=== PATIENT | female | born 1985 | race Caucasian/White ===

== ENCOUNTER → 2016-06-28 | Outpatient (CLI) | payer OTHER ==
[2016-06-28 12:09] LABS: HEMATOCRIT 41.6 % (37-47); MEAN CORPUSCULAR HEMOGLOBIN 28.7 pg (25-34); MEAN CORPUSCULAR HGB CONC 34.1 g/dl (32-36); MEAN PLATELET VOLUME 9.3 fL (7.4-10.4); PLATELET COUNT 295 K/uL (130-400); RED BLOOD COUNT 4.95 M/uL (4.2-5.4); WHITE BLOOD COUNT 6.19 K/uL (4.8-10.8)
== END | disposition home or self-care (01) ==
LOC: C.LAB 10:52
PROVIDERS: ATTEND Obstetrics & Gynecology Reproductive Endocrinology
DX: Z31.41 Encounter for fertility testing (principal); Z11.3 Encounter for screening for infections with a predominantly sexual mode of transmission; Z11.4 Encounter for screening for human immunodeficiency virus [HIV]; Z11.59 Encounter for screening for other viral diseases; Z13.0 Encounter for screening for diseases of the blood and blood-forming organs and certain disorders involving the immune mechanism

== ENCOUNTER 2022-06-10 17:19 | Observation (INO) ==
--- NOTE | 2022-06-10 17:32 | ED Triage Note ---
Date of Service June 10, 2022 History of Present Illness This patient was briefly evaluated while in triage. An abbreviated physical exam was performed. This patient is a 36-year-old Female who presents to the ED for evaluation of epigastric abdominal pain. Started around 0800 this morning. Got worse after lunch. Radiates through the back. Nausea without vomiting. History of esophagitis and esophageal stricture but this feels different. 08/20 Physical Exam GENERAL: NAD CARDIOVASCULAR: RRR RESPIRATORY: CTA ABDOMEN: BS x 4. Mild epigastric tenderness to palpation. Initial orders for labs and / or imaging were placed and patient was placed in the waiting area until a bed is available. Please see further documentation for the full ED course.
--- NOTE | 2022-06-10 19:01 | Ultrasound Report ---
US gallbladder CLINICAL HISTORY: Upper abdominal pain. COMPARISON STUDY: No previous studies for comparison. FINDINGS: The liver is sonographically normal. There is no biliary ductal dilatation. The common bile duct measures 5 mm in caliber. The gallbladder is distended. Numerous gallstones within the gallblad james noted. There is no gallbladder wall thickening. Is no pericholecystic fluid. No sonographic Tree [place] sign was elicited. Pancreatic body is normal. Head and tail are partially obscured. There is no rig ht hydronephrosis. IMPRESSION: 1. Cholelithiasis with mild gallbladder distention. No gallbladder wall thickening. No sonographic Mu rphy sign. No convincing evidence for acute cholecystitis although a hepatobiliary scan could be obta ined. 2. No biliary ductal dilatation. ACT 112: Negative or not required by law. Electronically signed by: Hadley Nick M.D. 06/10/2022 7:00 PM
[2022-06-10 19:21] LABS: Basophils # (auto) 0.09 K/uL (0-0.2); Basophils % (auto) 0.9 %; Eosinophils # (auto) 0.44 K/uL (0-0.50); Eosinophils % (auto) 4.6 %; Hematocrit (blood only) 40.1 % (37.0-47.0); Hemoglobin 13.7 g/dl (12.0-16.0); Immature Granulocytes # (auto) 0.03 K/uL (0.01-0.20); Immature Granulocytes % (auto) 0.3 %; Lymphocytes # (auto) 1.87 K/uL (1.2-3.4); Lymphocytes % (auto) 19.6 %; Mean Corpuscular Hgb Conc 34.2 g/dL (32.0-36.0); Mean Corpuscular Volume 84.8 fL (80.0-100.0); Mean Platelet Volume 9.5 fL (9.4-12.4); Monocytes # (auto) 0.55 K/uL (0.11-0.59); Monocytes % (auto) 5.8 %; Neutrophils # (auto) 6.57 K/uL (1.40-6.50); Neutrophils % (auto) 68.8 %; Platelet Count 304 K/uL (130-400); RDW Coefficient of Variation 12.2 % (11.5-14.5); RDW Standard Deviation 37.5 fL (36.4-46.3); Red Blood Count 4.73 M/uL (4.20-5.40); White Blood Count 9.55 K/ul (4.8-10.8)
[2022-06-10 19:35] LABS: Appearance Urine Turbid (Clear); Bacteria Urine Automated 1+ (Negative); Bilirubin Urine Negative (Negative); Blood Urine Negative (Negative); Cast Urine Automated 0 /lpf (0-5); Color Urine Yellow; Epithelial Cell Urine Auto >30 /lpf (0-5); Glucose Urine UA Negative (Negative); Ketones Urine 3+ (Negative); Leukocyte Esterase Urine 1+ (Negative); Nitrite Urine Negative (Negative); Protein Urine Negative (Negative); RBC Urine Automated 0-4 /hpf (0-4); Specific Gravity Urine 1.021 (1.000-1.030); Urobilinogen Urine Negative (Negative); pH Urine 8.5 (4.5-7.5)
[2022-06-10 19:39] LABS: Albumin Globulin Ratio 1.7 (0.9-2); Albumin Level 4.6 gm/dl (3.4-5.0); BUN Creatinine Ratio 17.6 (10-20); Bilirubin,Total 0.4 mg/dl (0.2-1.0); Calcium 9.7 mg/dl (8.5-10.1); Creatinine Clr Calc Pharmacy 87.8 ml/min; Est GFR (African American) 100.7 ml/min; Est GFR (Non-African American) 86.9 ml/min; Globulin 2.7 gm/dl (2.5-4.0); Potassium 3.9 mmol/L (3.5-5.1); Total Protein 7.3 gm/dl (6.0-8.3)
[2022-06-10 19:50] LABS: Pregnancy Test, Serum Negative (Negative)
[2022-06-10] MEDS ORDERED: ONDANSETRON INJ 2 MG/ML 2 ML VIAL IV STA (20:02)
[2022-06-10] MEDS ORDERED: MoRPHine SULFATE 4 MG/ML 1 ML CARP\\VIAL IV STA (20:02)
[2022-06-10] MEDS ORDERED: SODIUM CHLORIDE 0.9% 1000ML 1,000 ML IV SCH (20:02)
--- NOTE | 2022-06-10 20:11 | Emergency Department Note ---
History of Present Illness General Chief complaint: Abdominal Pain Stated complaint: UPPER ABDOMINAL PAIN Time Seen by Provider: 06/10/22 19:08 History of Present Illness Maximum Pain Intensity: 5 Patient is a 36-year-old female with past medical history significant for dysphagia, eosinophilic esophagitis and history of esophageal stricture who presents emergency department for evaluation of epigastric abdominal pain. Discomfort started around 0800 this morning. It is a constant, aching pain that radiates through to the back. She states her symptoms got worse after she ate lunch today, she had tuna, yogurt, popcorn, carrots and cucumbers around 1300. She went to an urgent care center but was told that they could not do any imaging and thus she presented here. At its worst she would have rated her pain a 7/10, she currently rates it a 6/10. She is nauseous but did not vomit. She denies any diarrhea. No urinary symptoms. She is status post appendectomy. Home Medications Medication Instructions Recorded Confirmed Type pantoprazole 40 mg tablet,delayed 40 mg PO DAILY EOE 1 month #30 tabs 11/20/21 06/10/22 Rx release (Protonix) conj estrogen-medroxyprogesterone See Rx Instructions .Route 06/09/22 06/10/22 Rx 0.625 mg-2.5 mg tablet (Prempro) .COMPLEX #84 tabs budesonide 1 mg/2 mL suspension 1 mg inhalation BID 06/10/22 06/10/22 History for nebulization multivitamin 1 tab PO DAILY 06/10/22 06/10/22 History Allergies Allergy/AdvReac Type Severity Reaction Status Date / Time No Known Drug Allergies Allergy Unknown Verified 06/10/22 20:11 Past Med/Surg History Medical History Acid reflux Dysphagia RESOLVED/NO CURRENT PROBLEMS Early menopause History of COVID-19 02/2021; fatigue, headache, fever; resolved. History of esophageal dilatation History of esophageal stricture Ovarian failure Surgical History H/O eye surgery retinal surgery History of colonoscopy History of esophagogastroduodenoscopy (EGD) History of tooth extraction S/P appendectomy Family History Grandmother (Paternal) Arthritis Heart disease Breast cancer Mother COPD (chronic obstructive pulmonary disease) Family/Other Pancreatic cancer Maternal Great Grandmother Other Diabetes Hypertension No family history of adverse response to anesthesia Denies family history of Ovarian cancer Prostate cancer Myocardial infarction Colorectal cancer Uterine cancer Social History Smoking Status: Never smoker Second Hand Exposure: Yes (in the past); Hx Alcohol Use: Yes Hx Substance Use: No Preferred Language: Bulgarian Communication Ability: Effective Transit Mechanic Required: No Beliefs That Will Affect Care: None marital status: Current Living Situation: Significant Other current occupational status: employed current occupation: social media campaign manager Feels Safe at Home: Yes caffeine: Yes Dental Care, Regularly: Yes Physical Activity Frequency: 3-4 Times per Week Seatbelt Use: always Assistive Devices: Contacts and Glasses Review of Systems A total of 10 systems reviewed and were otherwise negative Physical Exam Vital Signs Vital Signs - 24 hr 06/10/22 17:29 06/10/22 19:11 06/10/22 20:23 Temperature 36.8 C 36.4 C L Temperature Source Temporal Artery Scan Oral Pulse Rate 64 Pulse Rate [Right Finger] 68 Pulse Rhythm [Right Finger] Regular Pulse Strength [Right Finger] Normal Respiratory Rate 20 16 Respiratory Effort / Characteristics Non-Labored Non-Labored Respiratory Depth Normal Respiratory Pattern Regular Blood Pressure 143/90 H Blood Pressure [Left Arm] 116/72 Blood Pressure Mean 107 Blood Pressure Mean [Left Arm] 86 Blood Pressure Position [Left Arm] Lying Pulse Oximetry 100 100 88 L Oxygen Delivery Method Room Air Room Air Nasal Cannula Oxygen Flow Rate 0 Sepsis Recent Fever Within 48 Hours No Sepsis New/Unexplained Change in Mental Status N/A Sepsis Action Taken by Nursing No Action Required Oxygen Flow Rate - Titration 2 Pulse Oximetry Post Tiitration 98 06/10/22 19:30 06/10/22 20:00 06/10/22 21:00 Temperature Temperature Source Pulse Rate 69 70 66 Pulse Rate [Right Finger] Pulse Rhythm [Right Finger] Pulse Strength [Right Finger] Respiratory Rate 14 15 16 Respiratory Effort / Characteristics Respiratory Depth Respiratory Pattern Blood Pressure 131/86 119/80 123/75 Blood Pressure [Left Arm] Blood Pressure Mean 101 93 91 Blood Pressure Mean [Left Arm] Blood Pressure Position [Left Arm] Pulse Oximetry 100 Oxygen Delivery Method Oxygen Flow Rate Sepsis Recent Fever Within 48 Hours Sepsis New/Unexplained Change in Mental Status Sepsis Action Taken by Nursing Oxygen Flow Rate - Titration Pulse Oximetry Post Tiitration 06/10/22 19:36 06/10/22 23:00 06/10/22 23:15 Temperature Temperature Source Pulse Rate 67 77 89 Pulse Rate [Right Finger] Pulse Rhythm [Right Finger] Pulse Strength [Right Finger] Respiratory Rate 16 Respiratory Effort / Characteristics Respiratory Depth Respiratory Pattern Blood Pressure 121/71 Blood Pressure [Left Arm] Blood Pressure Mean 87 Blood Pressure Mean [Left Arm] Blood Pressure Position [Left Arm] Pulse Oximetry 96 Oxygen Delivery Method Oxygen Flow Rate Sepsis Recent Fever Within 48 Hours Sepsis New/Unexplained Change in Mental Status Sepsis Action Taken by Nursing Oxygen Flow Rate - Titration Pulse Oximetry Post Tiitration 06/10/22 23:30 Temperature Temperature Source Pulse Rate 77 Pulse Rate [Right Finger] Pulse Rhythm [Right Finger] Pulse Strength [Right Finger] Respiratory Rate 18 Respiratory Effort / Characteristics Respiratory Depth Respiratory Pattern Blood Pressure 124/77 Blood Pressure [Left Arm] Blood Pressure Mean 92 Blood Pressure Mean [Left Arm] Blood Pressure Position [Left Arm] Pulse Oximetry 97 Oxygen Delivery Method Oxygen Flow Rate Sepsis Recent Fever Within 48 Hours Sepsis New/Unexplained Change in Mental Status Sepsis Action Taken by Nursing Oxygen Flow Rate - Titration Pulse Oximetry Post Tiitration CONSTITUTIONAL: Patient is a mildly uncomfortable 36-year-old female who is awake and alert and laying on the gurney. EYES: Pupils equal, round, reactive to light and accommodation. EOMs intact wi thout nystagmus. Sclera are anicteric. ENT: Tympanic membranes intact, with normal landmarks. External canals are clear. Oral and nasopharynx are clear. Mucous membranes are moist, no lesions, tongue and gums appear normal. CARDIOVASCULAR: Regular rate and rhythm. Peripheral pulses easily palpable. RESPIRATORY: Breath sounds equal and clear to auscultation without wheezes, rales, or rhonchi heard. ABDOMEN: Bowel sounds are present. Well-healed surgical scars are noted. The abdomen is soft, nondistended, mildly tender to percussion and palpation in the epigastric and the right upper quadrant. Negative Walker sign. No guarding. No rebound. INTEGUMENTARY: No lesions or rash, normal skin turgor. LYMPH: No lymphadenopathy. Course Course The patient was seen and assessed as above. External medical records are reviewed. She was briefly seen by myself in triage and orders were initiated. She was fully examined by myself and she was placed in room B3. IV lock was initiated and laboratory studies were collected. CBC with differential, CMP, lipase, urinalysis and serum hCG were collected. Ultrasound of the gallbladder was ordered. After my assessment of the patient in the room, she was ordered a liter bolus of normal saline solution, Zofran 4 mg and morphine 4 mg IV. Laboratory studies per my interpretation note no leukocytosis. No left shift. No anemia. No electrolyte, renal function or liver function abnormalities. Lipase is not elevated. test is negative. Urine microscopy is indicative of contamination with greater than 30 epithelial cells. She does have 1+ leukocyte esterase and 10-30 WBCs with 1+ bacteria. A urine culture is pending. Ultrasound per my interpretation notes mildly distended gallbladder with numerous gallstones. There is no gallbladder wall thickening, pericholecystic fluid or ductal dilatation however. Findings are consistent with cho lelithiasis, but no evidence for acute cholecystitis. Laboratory studies and ultrasound findings were reviewed with the patient. She is moderately uncomfortable on exam, and has yet to be medicated. She was reassessed after receiving the IV morphine and Zofran, and reported only minimal improvement, she rated her discomfort a 4/10. Treatment options were discussed with the patient. After review of the information above and other included data, I feel the patient would benefit from admission for surgical evaluation and likely surgical intervention. I did discuss the patient with the ED nurse case management, and review the patient with general surgery, Sanchez Ronquillo PA-C. He will admit the patient to the surgical service, with plan for surgical intervention tomorrow. This was reviewed with the patient and she was agreeable. He rested comfortably in the emergency department and remained sta ble until she was admitted to the inpatient unit. Administered Medications Sodium Chloride (Nss 1000ml) 1,000 mls @ 125 mls/hr IV .Q8H CORINNA Stop: 07/10/22 21:44 Last Admin: 06/10/22 22:03 Dose: 125 mls/hr Documented By: HERRERA Discontinued Medications Sodium Chloride (Nss 1000ml) 1,000 mls @ 999 mls/hr IV .Q1H1M CORINNA Stop: 06/10/22 21:02 Last Infusion: 06/10/22 21:13 Dose: 0 mls/hr Documented By: Admin: 06/10/22 20:08 Dose: 999 mls/hr Documented By: HERRERA Morphine Sulfate (Morphine Sulfate 4 Mg/Ml 1 Ml Carp\Vial) 4 mg IV NOW STA Stop: 06/10/22 20:03 Last Admin: 06/10/22 20:08 Dose: 4 mg Documented By: HERRERA Ondansetron HCl (Ondansetron Inj 2 Mg/Ml 2 Ml Vial) 4 mg IV NOW STA Stop: 06/10/22 20:03 Last Admin: 06/10/22 20:08 Dose: 4 mg Documented By: HERRERA Medical Decision Making Differential Diagnosis Differential diagnoses considered included GERD, gastritis, esophagitis, peptic ulcer disease, acute pancreatitis, acute cholecystitis, biliary colic, ascending cholangitis, bowel obstruction, perforation, among others. Medical Records Attestation: I reviewed the patient's medical records. Home Medications Current Medication List: was personally reviewed by me Laboratory Data Attestation: I reviewed the patient's lab results. 06/10/22 18:40 06/10/22 18:40 Lab Results 06/10/22 06/10/22 06/10/22 Range/Units 18:40 18:40 18:40 WBC 9.55 (4.8-10.8) K/ul RBC 4.73 (4.20-5.40) M/uL Hgb 13.7 (12.0-16.0) g/dl Hct 40.1 (37.0-47.0) % MCV 84.8 (80.0-100.0) fL MCH 29.0 (25.0-34.0) pg MCHC 34.2 (32.0-36.0) g/dL RDW Std Deviation 37.5 (36.4-46.3) fL RDW Coeff of Onesimo 12.2 (11.5-14.5) % Plt Count 304 (130-400) K/uL MPV 9.5 (9.4-12.4) fL Immature Gran % (Auto) 0.3 % Neut % (Auto) 68.8 % Lymph % (Auto) 19.6 % [place] % (Auto) 5.8 % Eos % (Auto) 4.6 % Baso % (Auto) 0.9 % Neut # (Auto) 6.57 H (1.40-6.50) K/uL Lymph # (Auto) 1.87 (1.2-3.4) K/uL [place] # (Auto) 0.55 (0.11-0.59) K/uL Eos # (Auto) 0.44 (0-0.50) K/uL Baso # (Auto) 0.09 (0-0.2) K/uL Immature Gran # (Auto) 0.03 (0.01-0.20) K/uL Sodium 137 (136-145) mmol/L Potassium 3.9 (3.5-5.1) mmol/L Chloride 101 (98-107) mmol/L Carbon Dioxide 28 (21-32) mmol/L Anion Gap 8 (3-11) BUN 15 (6-23) mg/dl Creatinine 0.85 (0.6-1.2) mg/dl Est Cr Clr Drug Dosing 87.8 ml/min Est GFR ( Amer) 100.7 ml/min Est GFR (Non-Af Amer) 86.9 ml/min BUN/Creatinine Ratio 17.6 (10-20) Glucose 131 H (70-99(Fasting)) mg/dl Calcium 9.7 (8.5-10.1) mg/dl Total Bilirubin 0.4 (0.2-1.0) mg/dl AST 28 (13-39) U/L ALT 40 (7-52) U/L Alkaline Phosphatase 53 (34-104) U/L Total Protein 7.3 (6.0-8.3) gm/dl Albumin 4.6 (3.4-5.0) gm/dl Globulin 2.7 (2.5-4.0) gm/dl Albumin/Globulin Ratio 1.7 (0.9-2) Lipase 28 (11-82) U/L HCG, Qual Negative (Negative) Urine Color Urine Appearance (Clear) Urine pH (4.5-7.5) Ur Specific [place] (1.000-1.030) Urine Protein (Negative) Urine Glucose (UA) (Negative) Urine Ketones (Negative) Urine Blood (Negative) Urine Nitrite (Negative) Urine Bilirubin (Negative) Urine Urobilinogen (Negative) Ur Leukocyte Esterase (Negative) Urine WBC (Auto) (0-5) /hpf Urine RBC (Auto) (0-4) /hpf U Hyaline Cast (Auto) (0-5) /lpf U Epithel Cells (Auto) (0-5) /lpf Urine Bacteria (Auto) (Negative) SARS-CoV-2, RNA, NAAT (NEGATIVE) 06/10/22 06/10/22 Range/Units 19:16 22:07 WBC (4.8-10.8) K/ul RBC (4.20-5.40) M/uL Hgb (12.0-16.0) g/dl Hct (37.0-47.0) % MCV (80.0-100.0) fL MCH (25.0-34.0) pg MCHC (32.0-36.0) g/dL RDW Std Deviation (36.4-46.3) fL RDW Coeff of Onesimo (11.5-14.5) % Plt Count (130-400) K/uL MPV (9.4-12.4) fL Immature Gran % (Auto) % Neut % (Auto) % Lymph % (Auto) % [place] % (Auto) % Eos % (Auto) % Baso % (Auto) % Neut # (Auto) (1.40-6.50) K/uL Lymph # (Auto) (1.2-3.4) K/uL [place] # (Auto) (0.11-0.59) K/uL Eos # (Auto) (0-0.50) K/uL Baso # (Auto) (0-0.2) K/uL Immature Gran # (Auto) (0.01-0.20) K/uL Sodium (136-145) mmol/L Potassium (3.5-5.1) mmol/L Chloride (98-107) mmol/L Carbon Dioxide (21-32) mmol/L Anion Gap (3-11) BUN (6-23) mg/dl Creatinine (0.6-1.2) mg/dl Est Cr Clr Drug Dosing ml/min Est GFR ( Amer) ml/min Est GFR (Non-Af Amer) ml/min BUN/Creatinine Ratio (10-20) Glucose (70-99(Fasting)) mg/dl Calcium (8.5-10.1) mg/dl Total Bilirubin (0.2-1.0) mg/dl AST (13-39) U/L ALT (7-52) U/L Alkaline Phosphatase (34-104) U/L Total Protein (6.0-8.3) gm/dl Albumin (3.4-5.0) gm/dl Globulin (2.5-4.0) gm/dl Albumin/Globulin Ratio (0.9-2) Lipase (11-82) U/L HCG, Qual (Negative) Urine Color Yellow Urine Appearance Turbid A (Clear) Urine pH 8.5 H (4.5-7.5) Ur Specific [place] 1.021 (1.000-1.030) Urine Protein Negative (Negative) Urine Glucose (UA) Negative (Negative) Urine Ketones 3+ H (Negative) Urine Blood Negative (Negative) Urine Nitrite Negative (Negative) Urine Bilirubin Negative (Negative) Urine Urobilinogen Negative (Negative) Ur Leukocyte Esterase 1+ H (Negative) Urine WBC (Auto) 10-30 H (0-5) /hpf Urine RBC (Auto) 0-4 (0-4) /hpf U Hyaline Cast (Auto) 0 (0-5) /lpf U Epithel Cells (Auto) >30 H (0-5) /lpf Urine Bacteria (Auto) 1+ H (Negative) SARS-CoV-2, RNA, NAAT NEGATIVE (NEGATIVE) Imaging Data Attestation: I personally reviewed and interpreted this imaging study as follows: Radiologist's Impression: Gallbladder Ultrasound 06/10/22 17:33 US gallbladder CLINICAL HISTORY: Upper abdominal pain. COMPARISON STUDY: No previous studies for comparison. FINDINGS: The liver is sonographically normal. There is no biliary ductal dilatation. The common bile duct measures 5 mm in caliber. The gallbladder is distended. Numerous gallstones within the gallbladder noted. There is no gallb ladder wall thickening. Is no pericholecystic fluid. No sonographic Walker sign was elicited. Pancreatic body is normal. Head and tail are partially obscured. There is no right hydronephrosis. IMPRESSION: 1. Cholelithiasis with mild gallbladder distention. No gallbladder wall thickening. No sonographic Walker sign. No convincing evidence for acute cholecystitis although a hepatobiliary scan could be obtained. 2. No biliary ductal dilatation. ACT 112: Negative or not required by law. Electronically signed by: Hadley Nick M.D. 06/10/2022 7:00 PM MDM Narrative See ED course. Impression & Plan Symptomatic cholelithiasis, Biliary colic Discharge Plan Visit Data Chief Complaint: Abdominal Pain Stated Complaint: UPPER ABDOMINAL PAIN ED Provider: Gonzales Saavedra ED Midlevel Provider: Elizabeth Delgado Discharge Problem: Symptomatic cholelithiasis, Biliary colic Patient Disposition: Being Evaluated by Surgeon Discharge Instructions Interventions: ED Discharge Assessment Last Done: 06/11/22 00:30
[2022-06-10] MEDS ORDERED: MoRPHine SULFATE 2 MG/ML CARP IV PRN (21:37)
[2022-06-10] MEDS: SODIUM CHLORIDE 0.9% 1000ML 1,000 ML IV SCH (22:03)
--- NOTE | 2022-06-10 23:28 | History & Physical Report ---
Date of Service June 10, 2022 Assessment & Plan (1) Symptomatic cholelithiasis: Plan: Due to the patient's presenting symptoms as well as findings on imaging we will proceed as follows: Admit the patient to the hospital Implement n.p.o. status at midnight tonight Provide IV fluid for hydration Provide analgesics Provide antiemetics There is concern the patient might have a urinary tract infection so we will initiate antibiotics in form of Rocephin It appears that the patient is suffering from biliary colic and she wishes to proceed with cholecystectomy with Dr. Thomas. We have tentatively planned this procedure for tomorrow. I discussed with the patient the risks, benefits, and alternatives to the surgery and she wishes to proceed. Additional recommendations be forthcoming based on her operative findings and postoperative recovery Will use SCDs for DVT prevention, no chemical means due to planned surgery She will be a level 1 full code History of Present Illness Chief Complaint: Abdominal pain Primary Care Provider: COSMO Moreau This is a 36-year-old female who presented [facility] emergency department secondary to abdominal pain that began approximate 20 minutes after eating this evening. She notes that the pain is located in the epigastric area in the right upper quadrant without radiation. She does not note any modifying factors other than it was relieved with pain medicines administered in the emergency department. She does note that she noticed some minor abdominal pain after eating but never this severe. She has had prior abdominal surgeries that she has had a laparoscopic appendectomy. She notes that she has also had an EGD recently where she was diagnosed with an esophageal stricture as well as eosinophilic esophagitis. Since arrival to the emergency department patient has had labs and imaging which independent reviewed. A gallbladder ultrasound showed the patient had gallstones with mild gallbladder distention. There is no gallbladder wall thickening and no overall convincing evidence for acute cholecystitis. Labs include a CBC were white blood cell count, hemoglobin, hematocrit, and platelet count were all normal. Chemistry profile showed sodium, potassium, BUN, and creatinine were normal. There is no elevation of patient's bilirubin, transaminases or alkaline phosphatase. Her lipase was not elevated. A test was negative. Patient did have a urinalysis that showed 1+ leukocyte Estrace and 10-30 white blood cells per high-power field. There is 1+ bacteria on the study. COVID test was negative. Since arrival to the hospital she has had intravenous fluids initiated. At the time of my interview she was resting comfortably in bed and she was in no distress. Allergies Allergy/AdvReac Type Severity Reaction Status Date / Time No Known Drug Allergies Allergy Unknown Verified 06/10/22 20:11 Home Medications Medication Instructions Recorded Confirmed Type pantoprazole 40 mg tablet,delayed 40 mg PO DAILY EOE 1 month #30 tabs 11/20/21 06/10/22 Rx release (Protonix) conj estrogen-medroxyprogesterone See Rx Instructions .Route 06/09/22 06/10/22 Rx 0.625 mg-2.5 mg tablet (Prempro) .COMPLEX #84 tabs budesonide 1 mg/2 mL suspension 1 mg inhalation BID 06/10/22 06/10/22 History for nebulization multivitamin 1 tab PO DAILY 06/10/22 06/10/22 History Past Med/Surg History Medical History Acid reflux Dysphagia RESOLVED/NO CURRENT PROBLEMS Early menopause History of COVID-19 02/2021; fatigue, headache, fever; resolved. History of esophageal dilatation History of esophageal stricture Ovarian failure Surgical History H/O eye surgery retinal surgery History of colonoscopy History of esophagogastroduodenoscopy (EGD) History of tooth extraction S/P appendectomy Family History Grandmother (Paternal) Arthritis Heart disease Breast cancer Mother COPD (chronic obstructive pulmonary disease) Family/Other Pancreatic cancer Maternal Great Grandmother Other Diabetes Hypertension No family history of adverse response to anesthesia Denies family history of Ovarian cancer Prostate cancer Myocardial infarction Colorectal cancer Uterine cancer Social History Smoking Status: Never smoker Second Hand Exposure: Yes (in the past); Hx Alcohol Use: Yes Hx Substance Use: No Preferred Language: Indonesian Communication Ability: Effective Agriculture Internship Required: No Beliefs That Will Affect Care: None marital status: Current Living Situation: Significant Other current occupational status: employed current occupation: social insurance adviser Feels Safe at Home: Yes caffeine: Yes Dental Care, Regularly: Yes Physical Activity Frequency: 3-4 Times per Week Seatbelt Use: always Assistive Devices: Contacts and Glasses Review of Systems Constitutional: no fever and no chills Eyes: no eye pain Ear, Nose, Mouth, Throat: no ear pain Respiratory: no cough and no dyspnea Cardiovascular: no chest pain Gastrointestinal: as per Subjective / HPI Genitourinary: no dysuria Musculoskeletal: no back pain Integumentary: no rash Neurologic: no localized weakness Physical Exam Constitutional: WD/WN, vitals as above Eyes: + anicteric sclerae; no conjunctival abnormality ENMT: Ears: no hearing impairment and no external ear abnormality Sublingual jaundice is absent Neck: trachea midline Respiratory: normal respiratory effort; no respiratory distress and no labored breathing Cardiovascular: Rate/Rhythm: regular rate and regular rhythm Gastrointestinal (Abdomen): Abdomen is soft, nonrigid, and nondistended. There is no rebound tenderness or guarding. The patient did have pain with deep palpation in the right upper quadrant. Musculoskeletal: No calf tenderness Skin: no rashes Neurologic: moves all extremities Psychiatric: A+Ox3, euthymic affect Results & Data Results & Data ([facility]) Vital Signs (Past 12 Hours) Vital Signs Temp Pulse Pulse Resp BP BP Pulse Ox 06/10/22 23:15 89 06/10/22 23:00 77 16 121/71 96 06/10/22 19:36 67 06/10/22 21:00 66 16 123/75 100 06/10/22 20:00 70 15 119/80 06/10/22 19:30 69 14 131/86 06/10/22 20:23 88 L 06/10/22 19:11 36.4 C L 68 16 116/72 100 06/10/22 17:29 36.8 C 64 20 143/90 H 100 O2 Del Method O2 Flow Rate 06/10/22 23:15 06/10/22 23:00 06/10/22 19:36 06/10/22 21:00 06/10/22 20:00 06/10/22 19:30 06/10/22 20:23 Nasal Cannula 0 06/10/22 19:11 Room Air 06/10/22 17:29 Room Air PG Care Time/CCT Total # of Minutes Spent Total Time Spent with Patient: Total time spent is greater than 50% in coordination of care (as documented) at patient's floor/unit and/or counseling patient: Coding Level of Care Code 23508 INT INP/OBS CARE MIN Diagnoses Symptomatic cholelithiasis K80.20
[2022-06-11] MEDS ORDERED: ONDANSETRON INJ 2 MG/ML 2 ML VIAL IV PRN ×2 (00:49→12:21)
[2022-06-11] MEDS ORDERED: ACETAMINOPHEN 1,000 MG/100 ML VIAL IV PRN (00:49)
[2022-06-11] MEDS ORDERED: MoRPHine SULFATE 4 MG/ML 1 ML CARP\\VIAL IV PRN ×2 (00:49→15:21)
[2022-06-11] MEDS ORDERED: cefTRIAXone SODIUM 1,000 MG in DEXTROSE 5% AD-VAN 50 ML IV SCH (02:00)
[2022-06-11] MEDS: SODIUM CHLORIDE 0.9% 1000ML 1,000 ML IV SCH ×2 (06:50→16:06)
[2022-06-11] MEDS ORDERED: BUDESONIDE 0.5 MG/2 ML VIAL (PULMICORT) INH SCH (07:00)
--- NOTE | 2022-06-11 08:34 | History & Physical Bridge Note ---
Date of Service June 11, 2022 History & Physical Bridge Note I have examined the patient, reviewed the History & Physical and in the interval since the performance of the History & Physical I have noted the following changes of clinical significance: no changes noted Patient seen. She is feeling somewhat better than yesterday although still mild nausea and discomfort. Her symptoms do correlate with gallbladder/gallstone etiology. We discussed her options as well as risks of the surgery which include bleeding, infection, injury to a bile duct or bile leaks, DVT, PE, IL, CVA etc. Following our discussion answered all of her questions. We will proceed today with laparoscopic cholecystectomy. She agrees with the plan.
[2022-06-11] MEDS ORDERED: PANTOprazole 40 MG TAB PO SCH (09:00)
[2022-06-11] MEDS ORDERED: MIDAZOLAM HCL 1 MG/ML 2ML VIAL ONE (11:44)
[2022-06-11] MEDS ORDERED: fentaNYL citrate 100 MCG/2 ML VIAL ONE (11:44)
[2022-06-11] MEDS ORDERED: PROPOFOL IV EMULSION 10 MG/ML 20 ML VIAL IV ONE ×2 (11:45→13:05)
[2022-06-11] MEDS ORDERED: ROCURONIUM BROMIDE 10 MG/ML 5 ML VIAL IV ONE ×2 (11:45→13:05)
[2022-06-11] MEDS ORDERED: LIDOCAINE 2% MPF LOCAL 5 ML VIAL INFIL ONE ×2 (11:45→13:05)
[2022-06-11] MEDS ORDERED: DEXAMETHASONE SOD INJ 4 MG/ML VIAL ONE ×2 (11:45→13:05)
[2022-06-11] MEDS ORDERED: ONDANSETRON INJ 2 MG/ML 2 ML VIAL ONE ×2 (11:45→13:05)
[2022-06-11] MEDS ORDERED: PROMETHAZINE HCL 6.25 MG in SODIUM CHLORIDE 0.9% 50 ML IV PRN (12:21)
[2022-06-11] MEDS ORDERED: ePHEDrine sulfate 50 MG/ML AMP IV PRN (12:21)
[2022-06-11] MEDS ORDERED: HYDROmorphone INJ 2 MG/ML SYR/VIAL IV PRN (12:21)
[2022-06-11] MEDS ORDERED: fentaNYL citrate 100 MCG/2 ML VIAL IV PRN (12:21)
[2022-06-11] MEDS ORDERED: ATROPINE SULFATE 0.1 MG/ML 10ML SYR IV PRN (12:21)
--- NOTE | 2022-06-11 12:23 | Anesthesiology Consultation ---
Date of Service June 11, 2022 Assessment & Plan Chart Review Chart Review: Acceptable Risk for Surgery and Patient NOT seen in Pre Admission Testing Consults Requested none History Surgery Operation Date: 06/11/22 09:40 Proposed Procedures p Laparoscopic Cholecystectomy - Austin Thomas, Height/Weight Height: 5 ft 4 in Weight: 72.5 kg Allergies Allergy/AdvReac Type Severity Reaction Status Date / Time No Known Drug Allergies Allergy Unknown Verified 06/10/22 20:11 Medications Home Medications Medication Instructions Recorded Confirmed Last Taken pantoprazole 40 mg tablet,delayed 40 mg PO DAILY EOE 1 month #30 tabs 11/20/21 06/10/22 06/02/22 09:00 release (Protonix) conj estrogen-medroxyprogesterone See Rx Instructions .Route 06/09/22 06/10/22 Unknown 0.625 mg-2.5 mg tablet (Prempro) .COMPLEX #84 tabs budesonide 1 mg/2 mL suspension 1 mg inhalation BID 06/10/22 06/10/22 Unknown for nebulization multivitamin 1 tab PO DAILY 06/10/22 06/10/22 Unknown Active Medications Generic Name Dose Route Start Last Admin Trade Name Freq PRN Reason Stop Dose Admin Budesonide 1 mg 06/11/22 07:00 06/11/22 07:09 Budesonide 0.5 Mg/2 Ml Vial (Pulmicort) INH 07/11/22 06:59 1 mg BIDR CORINNA Administration Sodium Chloride 1,000 mls @ 125 mls/hr 06/10/22 21:45 06/11/22 06:50 Nss 1000ml IV 07/10/22 21:44 125 mls/hr .Q8H CORINNA Administration Ceftriaxone Sodium 1,000 mg/ 50 mls @ 100 mls/hr 06/11/22 02:00 06/11/22 02:41 Dextrose IV 06/16/22 00:48 Infused Q24H CORINNA Infusion Protocol Morphine Sulfate 3 mg 06/11/22 00:49 06/11/22 01:27 Morphine Sulfate 4 Mg/Ml 1 Ml Carp\Vial IV 06/25/22 00:48 3 mg Q3H PRN Administration Pain Pantoprazole Sodium 40 mg 06/11/22 09:00 06/11/22 08:55 Pantoprazole 40 Mg Tab PO 07/11/22 08:59 Not Given DAILY CORINNA NPO Date Last Intake of Fluids: 06/10/22 Time Last Intake of Fluids: 22:00 Date Last Intake of Solids: 06/10/22 Time Last Intake of Solids: 13:00 Past Medical History Medical History Acid reflux Dysphagia RESOLVED/NO CURRENT PROBLEMS Early menopause History of COVID-19 02/2021; fatigue, headache, fever; resolved. History of esophageal dilatation History of esophageal stricture Ovarian failure Exercise / Class Metabolic Activity II 4-5 Yardwork/Stairs/Walk up hill Past Family History Family History Grandmother (Paternal) Arthritis Heart disease Breast cancer Mother COPD (chronic obstructive pulmonary disease) Family/Other Pancreatic cancer Maternal Great Grandmother Other Diabetes Hypertension No family history of adverse response to anesthesia Denies family history of Ovarian cancer Prostate cancer Myocardial infarction Colorectal cancer Uterine cancer Past Surgical History Surgical History H/O eye surgery retinal surgery History of colonoscopy History of esophagogastroduodenoscopy (EGD) History of tooth extraction S/P appendectomy Past Anesthesia History No Hx of Anesthesia Complications and No Family Hx of Anesthesia Complications History of PONV No Hx of PONV and No Hx of Motion Sickness Social History Smoking Status: Never smoker Do You Dip or Chew Tobacco: No Hx Alcohol Use: No alcohol intake frequency: holidays/special occasions only Hx Substance Use: No substance use type: does not use Physical Exam Vital Signs Last Vital Signs Temp 37.1 C 06/11/22 12:08 Pulse 88 06/11/22 12:08 Resp 18 06/11/22 12:08 BP 126/77 06/11/22 12:08 Pulse Ox 98 06/11/22 12:08 O2 Del Method Room Air 06/11/22 12:08 O2 Flow Rate 0 06/10/22 20:23 Testing Laboratory Results 06/10/22 18:40 06/10/22 18:40 Urine Color Yellow 06/10/22 19:16 Urine Appearance Turbid (Clear) A 06/10/22 19:16 Urine pH 8.5 (4.5-7.5) H 06/10/22 19:16 Ur Specific [place] 1.021 (1.000-1.030) 06/10/22 19:16 Urine Protein Negative (Negative) 06/10/22 19:16 Urine Glucose (UA) Negative (Negative) 06/10/22 19:16 Urine Ketones 3+ (Negative) H 06/10/22 19:16 Urine Nitrite Negative (Negative) 06/10/22 19:16 Ur Leukocyte Esterase 1+ (Negative) H 06/10/22 19:16 Urine WBC (Auto) 10-30 /hpf (0-5) H 06/10/22 19:16 Urine RBC (Auto) 0-4 /hpf (0-4) 06/10/22 19:16 U Hyaline Cast (Auto) 0 /lpf (0-5) 06/10/22 19:16 U Epithel Cells (Auto) >30 /lpf (0-5) H 06/10/22 19:16 Urine Bacteria (Auto) 1+ (Negative) H 06/10/22 19:16
[2022-06-11] MEDS ORDERED: BUPIVACAINE/EPINEPHRINE 0.5% MPF 1:200,000 30 ML VIAL ONE (13:08)
[2022-06-11] MEDS ORDERED: ceFAZolin 330 MG/ML 1 GM VIAL ONE (13:30)
[2022-06-11] MEDS ORDERED: GLYCOPYRROLATE 0.2 MG/ML VIAL ONE (13:39)
[2022-06-11] MEDS ORDERED: NEOSTIGMINE METHYLSULFATE 1 MG/ML 10ML VIAL ONE (13:39)
[2022-06-11] MEDS ORDERED: KETOROLAC 30 MG/ML VIAL ONE (13:39)
[2022-06-11] MEDS ORDERED: ceFAZolin 2000MG 2,000 MG/15 ML SYR IV ONE (13:53)
--- NOTE | 2022-06-11 14:18 | Operative Report ---
PG Post Operative Report Pre & Post Diagnosis Operation Date: 06/11/22 09:40 Pre-Op Diagnosis: BILIARY COLIC Post-Op Diagnosis: acute cholecystitis I identified the patient and participated in the time-out.: Yes Procedure Operation Date: 06/11/22 09:40 Actual Procedures p Laparoscopic Cholecystectomy(Not Applicable) - Austin Thomas DO Surgeon Austin Thomas DO Crossing Supervisor n/a Estimated Blood Loss 20 Findings Consistent with Post-Op Diagnosis Specimens gallbladder Description of Procedure After informed consent was obtained the patient was taken to the operating room and placed in the supine position. After successful intubation the abdomen was sterilely prepped and draped in usual fashion. A periumbilical incision was made with an 11 blade scalpel and carried down through the soft tissue using electrocautery. The anterior rectus fascia was opened using electrocautery and 2 #0 Vicryl stay sutures were placed. The peritoneum was elevated with hemostats and incised under direct vision using Metzenbaum scissors. A finger sweep was performed and a 12 mm Banegas trocar was placed. The abdomen was insufflated to 18 mmHg. The laparoscope was inserted and the abdomen was examined in 360. No gross abnormalities were identified. A subxiphoid 5 mm port and 2 right upper quadrant 5 mm ports were placed under direct vision. The patient was placed in a reverse Trendelenburg position and slightly airplaned to the left. The gallbladder was grasped and elevated superiorly and laterally. A [place] dissector was used to take down adhesions around the neck of the gallbladder. The gallbladder was acutely inflamed. The gallbladder with needle was used to decompress the gallbladder. Next, the cystic duct was identified and skeletonized. It was clipped twice proximally and once distally and transected using a laparoscopic scissor. In similar fashion the cystic artery was identified and skeletonized clipped and divided. The gallbladder was removed from the gallbladder fossa with electrocautery. It was placed into an Endo Catch bag. Thorough irrigation was performed. At the end of the procedure there was adequate hemostasis and no evidence of any bile leaks. A final look around the abdomen showed no other abnormalities. The gallbladder and trochars were all removed and the abdomen was desufflated. The fascia of the camera port was closed using 0 Vicryl in a [id number] fashion. All the wounds were irrigated and closed using 4-0 Monocryl. Marcaine was injected around them for postoperative analgesia and skin glue used as a dressing. The patient was awaken extubated and transferred to recovery in stable condition. I attest to the content of the Intraoperative Record and any orders documented therein. Any exceptions are noted below.
--- NOTE | 2022-06-11 15:01 | Anesthesiology Progress Note ---
Date of Service June 11, 2022 Anesthesia Post Procedure Vital Signs Vital Signs: Temp Pulse Pulse Pulse Resp BP BP 06/11/22 14:56 36.9 C 71 18 128/79 06/11/22 14:51 71 20 128/79 06/11/22 14:40 71 17 127/80 06/11/22 14:30 36.2 C L 67 17 134/80 06/11/22 14:20 36.2 C L 86 22 124/74 06/11/22 13:21 36.8 C 88 18 105/65 06/11/22 12:08 37.1 C 88 18 126/77 06/11/22 07:30 36.9 C 85 18 125/77 06/11/22 07:12 73 18 06/11/22 00:40 06/11/22 00:40 06/11/22 00:20 75 15 122/83 06/11/22 00:00 76 15 126/74 06/11/22 00:40 37.6 C H 81 14 125/73 06/10/22 23:30 77 18 124/77 06/10/22 23:15 89 06/10/22 23:00 77 16 121/71 06/10/22 19:36 67 06/10/22 21:00 66 16 123/75 06/10/22 20:00 70 15 119/80 06/10/22 19:30 69 14 131/86 06/10/22 20:23 06/10/22 19:11 36.4 C L 68 16 116/72 06/10/22 17:29 36.8 C 64 20 143/90 H Pulse Ox O2 Del Method O2 Flow Rate 06/11/22 14:56 93 Nasal Cannula 2 06/11/22 14:51 93 Room Air 06/11/22 14:40 93 Room Air 06/11/22 14:30 99 Oxymask 5 06/11/22 14:20 96 Oxymask 8 06/11/22 13:21 96 Room Air 06/11/22 12:08 98 Room Air 06/11/22 07:30 97 Room Air 06/11/22 07:12 97 Room Air 06/11/22 00:40 Room Air 06/11/22 00:40 Room Air 06/11/22 00:20 97 06/11/22 00:00 96 06/11/22 00:40 97 Room Air 06/10/22 23:30 97 06/10/22 23:15 06/10/22 23:00 96 06/10/22 19:36 06/10/22 21:00 100 06/10/22 20:00 06/10/22 19:30 06/10/22 20:23 88 L Nasal Cannula 0 06/10/22 19:11 100 Room Air 06/10/22 17:29 100 Room Air Pain Intensity Upper Abdomen: Pain Intensity: 0 Transfer of Care Handoff Completed per policy Notes Mental Status: alert / awake / arousable Patient Amnestic to Procedure: Yes Nausea / Vomiting: adequately controlled Pain: adequately controlled Airway Patency, RR, SpO2: stable & adequate BP & HR: stable & adequate Hydration State: stable & adequate Anesthetic Complications: no major complications apparent
[2022-06-11] MEDS ORDERED: MoRPHine SULFATE 2 MG/ML CARP IV PRN (15:21)
[2022-06-11] MEDS ORDERED: oxyCODONE HCL IR 5 MG TAB (IMMEDIATE RELEASE) PO PRN ×2 (15:21)
[2022-06-11] MEDS ORDERED: LACTATED RINGER'S 1,000 ML IV SCH (15:21)
--- NOTE | 2022-06-11 15:35 | Anesthesiology Progress Note ---
Date of Service June 11, 2022 Anesthesia Post Procedure Vital Signs Vital Signs: Temp Pulse Pulse Pulse Resp BP BP 06/11/22 15:22 37.4 C 68 12 123/79 06/11/22 14:56 36.9 C 71 18 128/79 06/11/22 14:51 71 20 128/79 06/11/22 14:40 71 17 127/80 06/11/22 14:30 36.2 C L 67 17 134/80 06/11/22 14:20 36.2 C L 86 22 124/74 06/11/22 13:21 36.8 C 88 18 105/65 06/11/22 12:08 37.1 C 88 18 126/77 06/11/22 07:30 36.9 C 85 18 125/77 06/11/22 07:12 73 18 06/11/22 00:40 06/11/22 00:40 06/11/22 00:20 75 15 122/83 06/11/22 00:00 76 15 126/74 06/11/22 00:40 37.6 C H 81 14 125/73 06/10/22 23:30 77 18 124/77 06/10/22 23:15 89 06/10/22 23:00 77 16 121/71 06/10/22 19:36 67 06/10/22 21:00 66 16 123/75 06/10/22 20:00 70 15 119/80 06/10/22 19:30 69 14 131/86 06/10/22 20:23 06/10/22 19:11 36.4 C L 68 16 116/72 06/10/22 17:29 36.8 C 64 20 143/90 H Pulse Ox O2 Del Method O2 Flow Rate 06/11/22 15:22 98 Nasal Cannula 2 06/11/22 14:56 93 Nasal Cannula 2 06/11/22 14:51 93 Room Air 06/11/22 14:40 93 Room Air 06/11/22 14:30 99 Oxymask 5 06/11/22 14:20 96 Oxymask 8 06/11/22 13:21 96 Room Air 06/11/22 12:08 98 Room Air 06/11/22 07:30 97 Room Air 06/11/22 07:12 97 Room Air 06/11/22 00:40 Room Air 06/11/22 00:40 Room Air 06/11/22 00:20 97 06/11/22 00:00 96 06/11/22 00:40 97 Room Air 06/10/22 23:30 97 06/10/22 23:15 06/10/22 23:00 96 06/10/22 19:36 06/10/22 21:00 100 06/10/22 20:00 06/10/22 19:30 06/10/22 20:23 88 L Nasal Cannula 0 06/10/22 19:11 100 Room Air 06/10/22 17:29 100 Room Air Pain Intensity Upper Abdomen: Pain Intensity: 0 Transfer of Care Handoff Completed per policy Notes Mental Status: alert / awake / arousable and participated in evaluation Patient Amnestic to Procedure: Yes Nausea / Vomiting: adequately controlled Pain: adequately controlled Airway Patency, RR, SpO2: stable & adequate BP & HR: stable & adequate Hydration State: stable & adequate Anesthetic Complications: no major complications apparent and Pt Satisfied with anesthetic care
--- NOTE | 2022-06-13 14:12 | Discharge Summary ---
Date of Service June 11, 2022 Admission HPI Per Admitting Provider This is a 36-year-old female who presented [facility] emergency department secondary to abdominal pain that began approximate 20 minutes after eating this evening. She notes that the pain is located in the epigastric area in the right upper quadrant without radiation. She does not note any modifying factors other than it was relieved with pain medicines administered in the emergency department. She does note that she noticed some minor abdominal pain after eating but never this severe. She has had prior abdominal surgeries that she has had a laparoscopic appendectomy. She notes that she has also had an EGD recently where she was diagnosed with an esophageal stricture as well as eosinophilic esophagitis. Since arrival to the emergency department patient has had labs and imaging which independent reviewed. A gallbladder ultrasound showed the patient had gallstones with mild gallbladder distention. There is no gallbladder wall thickening and no overall convincing evidence for acute cholecystitis. Labs include a CBC were white blood cell count, hemoglobin, hematocrit, and platelet count were all normal. Chemistry profile showed sodium, potassium, BUN, and creatinine were normal. There is no elevation of patient's bilirubin, transaminases or alkaline phosphatase. Her lipase was not elevated. A test was negative. Patient did have a urinalysis that showed 1+ leuk ocyte Estrace and 10-30 white blood cells per high-power field. There is 1+ bacteria on the study. COVID test was negative. Since arrival to the hospital she has had intravenous fluids initiated. At the time of my interview she was resting comfortably in bed and she was in no distress. Principal Diagnosis acute cholecystitis Discharge Exam awake/alert, no distress Respiratory normal respiratory effort Gastrointestinal (Abdomen) Inspection/Auscultation: + abdominal surgical incision (c/d/i ) Percussion/Palpation: + abdomen tender (expected chapin incisional discomfort to palpation) and abdomen soft Discharge Data Allergies Allergy/AdvReac Type Severity Reaction Status Date / Time No Known Drug Allergies Allergy Unknown Verified 06/12/22 08:38 Consultations 06/10/22 21:39 ED Decision to Admit Stat Procedures Performed Operation Date: 06/11/22 09:40 Actual Procedures p Laparoscopic Cholecystectomy(Not Applicable) - Austin Thomas, DO Ordered Studies 06/10/22 17:33 US gallbladder Stat Hospital Course (1) Acute cholecystitis: This is a 36yF who presented to the [facility] ED on 06/10/22 with abdominal pain. Workup in the ED showed a WBC of 9 and a RUQ US that revealed + cholelithiasis and gallbladder distention. Imaging and history concerning for symptomatic cholelithiasis. The patient was tender to palpation in the RUQ. Patient made NPO with IVF and booked for the OR. On 06/11/22 the patient went to the OR with Dr. Thomas for a laparoscopic cholecystectomy. The patient tolerated the procedure well, see operative report for full details. Post operatively the patient's diet was advanced, pain managed on prn meds, and incisions clean/dry/intact. On POD#0 (06/11/22) the patient was deemed stable for discharge to home. (2) Symptomatic cholelithiasis: (3) Biliary colic: Total Time Total Time Spent Total Time Spent (In Minutes): 15 Discharge Plan Discharge Items Patient Disposition: Home - Self-Care Reason For Visit: BILIARY COLIC Discharge Diagnosis: laparoscopic cholecystectomy Activity: Per Instructions section Lifting: No more than 10 pounds Bathing Comment: may shower starting 06/12/22; no soaking in tubs/pools Exercise/Sports: Wait until after follow-up appointment Driving/Machine Use: no driving while taking narcotics for pain Non-emergency contact: Surgeon Call non-emergency contact if: you have any medication questions, your symptoms worsen, your pain is not controlled, your pain is concerning for you, you have a fever, your temperature is above 101.5, your wound has increased redness, your wound has increased drainage and your wound pain has increased Follow-up/Referrals: Zaria Walters CRNP [Primary Care Provider] - Austin Thomas, DO [Surgeon] - (please call to schedule follow up in clinic within 2 weeks ) Diet: Regular Addtl Attending Provider Instructions: Pending Studies at Discharge: Yes Studies:: surgical pathology Stand-Alone Forms: [facility] Sponsorship, Smoking Cessation Medications and DC Order Prescriptions: New oxycodone-acetaminophen [Percocet] 5-325 mg tablet 1 - 2 tab PO .q4-6h PRN (Reason: pain, for initial therapy, max 6 tabs per day) Qty: 15 0RF Continued pantoprazole [Protonix] 40 mg tablet,delayed release (DR/EC) 40 mg PO DAILY 30 Days Qty: 30 8RF Patient Comments: QAM Prempro 0.625-2.5 mg tablet See Rx Instructions .ROUTE .COMPLEX Qty: 84 3RF Dose Instruction: TAKE 1 TABLET BY MOUTH EVERY DAY Rx Instructions: TAKE 1 TABLET BY MOUTH EVERY DAY multivitamin Tablet 1 tab PO DAILY budesonide 1 mg/2 mL suspension for nebulization 1 mg inhalation BID Discharge Orders: Discharge Order (Routine); Ordered 06/11/22 Ordered By: Teresa Orr/Other Patient Handouts: Having Laparoscopic Cholecystectomy, ED Diet, Low Fat Admission Data Admit Date/Time: 06/10/22 23:31 Attending Provider: Austin Thomas Admit Provider: Austin Thomas Primary Care Provider: Zaria Walters Other Providers: Austin Thomas Other Interventions: Discharge Summary Assessment (RN) Last Done: 06/11/22 18:14 Coding Level of Care Code 91324 IN/OBS DISCH 30 MIN/LESS Diagnoses Acute cholecystitis K81.0 Symptomatic cholelithiasis K80.20 Biliary colic K80.50
== END 2022-06-11 19:13 | disposition home or self-care (01) ==
LOC: ED 17:19 → 3N 17:19